=== PATIENT | female | born 1975 | race Caucasian/White ===

== ENCOUNTER 2018-08-15 12:45 | Outpatient (CLI) | payer OTHER ==
[~2018-08-15] VITALS: Ht 168.9 cm; Wt 80.7 kg
[2018-08-15 12:56] VITALS: BP 117/74
[2018-08-15 13:29] LABS: BILIRUBIN,URINE NEGATIVE (NEGATIVE); CLARITY,URINE CLEAR; COLOR,URINE YELLOW; GLUCOSE, URINE (UA) NEGATIVE (NEGATIVE); KETONES,URINE NEGATIVE (NEGATIVE); LEUKOCYTE ESTERASE ,URINE 1+ (NEGATIVE); NITRITE,URINE NEGATIVE (NEGATIVE); PH,URINE 6 (5-9); PROTEIN,URINE NEGATIVE (NEGATIVE); UROBILINOGEN,URINE NORMAL (NORMAL)
[2018-08-15 13:52] LABS: BACTERIA,URINE TRACE /HPF; RBC,URINE 0-2 /HPF
[2018-08-22] MEDS ORDERED: HYDR-34 PO (18:12)
[2018-08-22] MEDS ORDERED: SIME80TA16 PO (18:12)
[2018-08-22] MEDS ORDERED: IBUP-844 PO (18:12)
[2018-08-22] MEDS ORDERED: DOCU100C37 PO (18:12)
== END 2018-08-15 13:15 | disposition home or self-care (01) ==
LOC: PREOP 12:45
PROVIDERS: ATTEND Obstetrics & Gynecology
DX: Z01.818 Encounter for other preprocedural examination (principal); N92.0 Excessive and frequent menstruation with regular cycle; N94.6 Dysmenorrhea, unspecified; D64.9 Anemia, unspecified; Z11.2 Encounter for screening for other bacterial diseases
CPT/HCPCS: 81000; 87081; 87088

== ENCOUNTER 2018-08-21 07:00 | Day surgery (SDC) | payer OTHER ==
[~2018-08-21] VITALS: Ht 168.9 cm; Wt 80.7 kg
[2018-08-21] MEDS ORDERED: LACTATED RINGERS 1,000 ML IV PRN (07:16)
[2018-08-21] MEDS ORDERED: CATHETER FLUSH 10 ML SYR IV PRN (07:30)
[2018-08-21] MEDS ORDERED: metroNIDAZOLE 500MG/100ML IVPB 100 ML IV ONE (07:30)
[2018-08-21] MEDS ORDERED: ceFAZolin INJECTION 1,000 MG in NS (IVPB) 50 ML IV ONE (07:30)
[2018-08-21 07:57] LABS: BASOPHILS % (AUTO) 0 % (0-10); EOSINOPHILS # (AUTO) 0.1 10^3/uL (0.0-0.3); EOSINOPHILS % (AUTO) 1 % (0-10); HEMATOCRIT 41 % (35-52); HEMOGLOBIN 14.1 G/DL (11.5-16.0); LYMPHOCYTES # (AUTO) 1.4 X 10^3 (1.0-4.0); LYMPHOCYTES % (AUTO) 29 % (12-44); MEAN CORPUSCULAR HEMOGLOBIN 31 PG (25-34); MEAN CORPUSCULAR HGB CONC 34 G/DL (32-36); MEAN CORPUSCULAR VOLUME 92 FL (80-99); MEAN PLATELET VOLUME 9.6 FL (7.4-10.4); MONOCYTES # (AUTO) 0.4 X 10^3 (0.0-1.0); MONOCYTES % (AUTO) 8 % (0-12); NEUTROPHILS # (AUTO) 2.9 X 10^3 (1.8-7.8); NEUTROPHILS % (AUTO) 62 % (42-75); PLATELET COUNT 231 10^3/uL (130-400); RED BLOOD COUNT 4.49 10^6/uL (4.35-5.85); RED CELL DISTRIBUTION WIDTH 12.2 % (10.0-14.5); WHITE BLOOD COUNT 4.7 10^3/uL (4.3-11.0)
[2018-08-21] MEDS ORDERED: SEVOFLURANE (ULTANE) 15 ML INHAL SOLN ONE (08:03)
[2018-08-21] MEDS ORDERED: ROCURONIUM 10 MG/ML 5 ML SYRINGE IV ONE (08:03)
[2018-08-21] MEDS ORDERED: LIDOCAINE PF 2% 5 ML (XYLOCAINE) VIAL ONE (08:03)
[2018-08-21] MEDS ORDERED: proPOfol 200 MG/20 ML (DIPRIVAN) VIAL IV ONE (08:03)
[2018-08-21] MEDS ORDERED: ONDANSETRON 4 MG/2 ML (SDV) Z0FRAN ONE (08:04)
[2018-08-21] MEDS ORDERED: MIDAZOLAM 2 MG/2 ML (VERSED) VIAL ONE (08:04)
[2018-08-21] MEDS ORDERED: DEXAMETHASONE 10 MG/ML (DECADRON) 1 ML VIAL ONE (08:04)
[2018-08-21] MEDS ORDERED: fentaNYL INJECTION 100 MCG/2 ML AMP ONE (08:04)
[2018-08-21] MEDS ORDERED: FAMOTIDINE 20MG/2ML IV (PEPCID) IV ONE (08:15)
[2018-08-21] MEDS ORDERED: ONDANSETRON 4 MG/2 ML (SDV) Z0FRAN IV ONE (08:15)
[2018-08-21] MEDS ORDERED: SCOPOLAMINE 1.5 MG (TRANSDERM-SCOP) PATCH TOP ONE (08:15)
[2018-08-21] MEDS ORDERED: BUP/EPI 0.5% 1:200,000 (SENSORCAINE) 30 ML VIAL ONE (08:18)
[2018-08-21] MEDS ORDERED: SCOPOLAMINE 1.5 MG (TRANSDERM-SCOP) PATCH ONE (08:36)
[2018-08-22] MEDS ORDERED: HYDR-34 PO (18:12)
[2018-08-22] MEDS ORDERED: DOCU100C37 PO (18:12)
[2018-08-22] MEDS ORDERED: IBUP-844 PO (18:12)
[2018-08-22] MEDS ORDERED: SIME80TA16 PO (18:12)
== END 2018-08-21 10:40 | disposition home or self-care (01) ==
LOC: SDC 07:00
PROVIDERS: ATTEND Obstetrics & Gynecology
DX: N92.0 Excessive and frequent menstruation with regular cycle (principal); N94.6 Dysmenorrhea, unspecified; R93.89 Abnormal findings on diagnostic imaging of other specified body structures; D64.9 Anemia, unspecified; Z53.8 Procedure and treatment not carried out for other reasons
CPT/HCPCS: 36415; 84703; 85025; 86850; 86900; 86901

== ENCOUNTER 2018-08-22 06:08 | Day surgery (SDC) | payer OTHER ==
[~2018-08-22] VITALS: Ht 168.9 cm; Wt 80.7 kg
[2018-08-22] VITALS (9 sets, daily range): BP systolic 98–115; BP diastolic 69–76
[2018-08-22] MEDS: LACTATED RINGERS 1,000 ML IV PRN ×2 (06:25→08:15)
[2018-08-22] MEDS ORDERED: FAMOTIDINE 20MG/2ML IV (PEPCID) IV ONE (06:45)
[2018-08-22] MEDS ORDERED: SCOPOLAMINE 1.5 MG (TRANSDERM-SCOP) PATCH TOP ONE (06:45)
[2018-08-22] MEDS ORDERED: ONDANSETRON 4 MG/2 ML (SDV) Z0FRAN IV ONE (06:45)
[2018-08-22] MEDS ORDERED: DEXAMETHASONE 10 MG/ML (DECADRON) 1 ML VIAL ONE (06:55)
[2018-08-22] MEDS ORDERED: proPOfol 200 MG/20 ML (DIPRIVAN) VIAL IV ONE (06:55)
[2018-08-22] MEDS ORDERED: ONDANSETRON 4 MG/2 ML (SDV) Z0FRAN ONE ×2 (06:55→06:57)
[2018-08-22] MEDS ORDERED: ROCURONIUM 10 MG/ML 5 ML SYRINGE IV ONE (06:55)
[2018-08-22] MEDS ORDERED: LIDOCAINE PF 2% 5 ML (XYLOCAINE) VIAL ONE (06:55)
[2018-08-22] MEDS ORDERED: fentaNYL INJECTION 100 MCG/2 ML AMP ONE (06:55)
[2018-08-22] MEDS ORDERED: SEVOFLURANE (ULTANE) 15 ML INHAL SOLN ONE ×8 (06:55→08:40)
[2018-08-22] MEDS ORDERED: MIDAZOLAM 2 MG/2 ML (VERSED) VIAL ONE (06:55)
[2018-08-22] MEDS ORDERED: SCOPOLAMINE 1.5 MG (TRANSDERM-SCOP) PATCH ONE (06:57)
[2018-08-22] MEDS ORDERED: ceFAZolin 1,000 MG/10 ML (ANCEF) VIAL ONE (07:00)
[2018-08-22] MEDS ORDERED: NS (IVPB) 50 ML ONE (07:00)
[2018-08-22] MEDS ORDERED: metroNIDAZOLE 500MG/100ML IVPB 100 ML ONE (07:01)
[2018-08-22] MEDS ORDERED: BUP/EPI 0.5% 1:200,000 (SENSORCAINE) 30 ML VIAL ONE (07:08)
--- NOTE | 2018-08-22 07:14 | Progress Note-Pre Operative ---
Pre-Operative Progress Note H&P Reviewed The H&P was reviewed, patient examined and no changes noted. Date Seen by Provider: Aug 22, 2018 Time Seen by Provider: 07:10 Date H&P Reviewed: Aug 22, 2018 Time H&P Reviewed: 07:00 Pre-Operative Diagnosis: menorrhagia, dysmenorrhea, anemia, adenomyosis BRINA PINEDA DO Aug 22, 2018 07:14
[2018-08-22] MEDS ORDERED: ceFAZolin INJECTION 1,000 MG in NS (IVPB) 50 ML IV ONE (08:30)
[2018-08-22] MEDS ORDERED: metroNIDAZOLE 500MG/100ML IVPB 100 ML IV ONE (08:30)
[2018-08-22] MEDS ORDERED: GLYCOPYRROLATE 0.2 MG/ML (ROBINUL) 2 ML VIAL ONE (09:25)
[2018-08-22] MEDS ORDERED: NEOSTIGMINE 1 MG/ML 5 ML SYRINGE ONE (09:25)
[2018-08-22] MEDS: LACTATED RINGERS 1,000 ML IV SCH ×2 (09:40→14:43)
[2018-08-22] MEDS: KETOROLAC 30 MG/ML VIAL IV PRN ×2 (09:40→16:00)
[2018-08-22] MEDS ORDERED: DOCUSATE SODIUM 100 MG (COLACE) CAP PO PRN (09:45)
[2018-08-22] MEDS ORDERED: ONDANSETRON 4 MG/2 ML (SDV) Z0FRAN IV PRN (09:45)
[2018-08-22] MEDS ORDERED: SIMETHICONE 80 MG (MYLICON) CHEW PO PRN (09:45)
[2018-08-22] MEDS ORDERED: ANTACID SUSP 30 ML UDC (MYLANTA) PO PRN (09:45)
[2018-08-22] MEDS ORDERED: CHLORASEPTIC LOZENGE MM PRN (09:45)
[2018-08-22] MEDS ORDERED: HYDROcodone/APAP 7.5 MG/325 MG (LORTAB, LORCET PLUS) TABLET PO PRN (09:45)
--- NOTE | 2018-08-22 09:51 | Operative Report ---
Operative Report Date of Procedure/Surgery Aug 22, 2018 Surgeon (s) BRINA PINEDA DO Aluminum Sheet Cutter (s): Joe Mckeon, MS III Post-Operative Diagnosis same Procedure Performed RaTH- aisha salpingectomy Description of Procedure Anesthesia Type: General Estimated blood loss (mL): 100 Specimen(s) collected/removed uterus, bilateral tubes Findings of the Procedure enlarged, boggy, retroverted uterus. Normal appearing tubes and ovaries. Kayden Masters window in the [place] with endometriosis. adhesions in the right lower quadrant. could not visualize the appendix, likely retrocecal. Allergies and Home Medications Allergies Coded Allergies: codeine (Verified Allergy, Unknown, 08/15/18) Home Medications No Active Prescriptions or Reported Meds Patient Home Medication List Home Medication List Reviewed: Yes BRINA PINEDA DO Aug 22, 2018 09:51
[2018-08-22] MEDS ORDERED: HYDROmorphone 2 MG/ML VIAL (DILAUDID) ONE (09:53)
[2018-08-22] MEDS ORDERED: PROMETHAZINE INJ 25 MG/ML (PHENERGAN) AMP IVP ONE (10:00)
[2018-08-22] MEDS ORDERED: morphine INJ 10 MG/ML 1ML (SYR OR VIAL) IVP ONE (10:00)
[2018-08-22] MEDS ORDERED: ONDANSETRON 4 MG/2 ML (SDV) Z0FRAN IVP PRN (10:00)
[2018-08-22] MEDS ORDERED: HYDROmorphone 2 MG/ML VIAL (DILAUDID) IV ONE (10:00)
[2018-08-22] MEDS ORDERED: MEPERIDINE (DEMEROL) INJ 50 MG/ML ONE (10:33)
[2018-08-22] MEDS ORDERED: MEPERIDINE (DEMEROL) INJ 50 MG/ML IVP ONE (10:45)
[2018-08-22] MEDS ORDERED: FLU QUADRIvalent (5+ YOA) 2018-2019 (AFLURIA) 0.5 ML IM ONE (13:15)
[2018-08-22] MEDS ORDERED: HYDROmorphone 2 MG/ML VIAL (DILAUDID) IV PRN (13:30)
[2018-08-22] MEDS ORDERED: SIME80TA16 PO (18:12)
[2018-08-22] MEDS ORDERED: DOCU100C37 PO (18:12)
[2018-08-22] MEDS ORDERED: IBUP-844 PO (18:12)
[2018-08-22] MEDS ORDERED: HYDR-34 PO (18:12)
--- NOTE | 2018-08-22 18:17 | Discharge Inst-Women's Service ---
Discharge Inst-Women's Serv Depart Medication/Instructions New, Converted or Re-Newed RX: RX on Chart Final Diagnosis menorrhagia dysmenorrhea endometriosis enteropelvic adhesions s/p RaTH, bilateral salpingectomy Consults/Follow Up Additional Follow Up: Yes (1 week with Amaris Gale and 10-12 weeks with Diogo) Activity Activity: Activity as Tolerated Driving Instructions: No Driving for 1 Week NO SMOKING: NO SMOKING Nothing Inside Vagina: No Douching, No [place], No Tampons Diet Discharge Diet: No Restrictions Symptoms to Report to : Bleeding Excessive, Pain Increased, Fever Over 101 Degrees F, Vaginal Bleeding Increase, Cramps in Feet or Legs, Vaginal Discharge Foul For Any Problems or Questions: Contact Your Physician Skin/Wound Care Infection Signs and Symptoms: Increased Redness, Foul Odor of Wound, Increased Drainage, Skin Itchy or Has a Rash, Increased Swelling, Temperature Above 101 F Operative Area Clean and Dry: Keep Incision Clean/Dry, You May Remove Bandage ( Keep bandages in place for 3 days. May remove if soiled or wet.) Stitches/Mo/Dermabond: Dermabond Bathing Instructions: BRINA Rowell DO Aug 22, 2018 18:17
[2018-08-23] MEDS ORDERED: IBUPROFEN 600 MG (MOTRIN) TAB PO PRN (02:30)
== END 2018-08-22 19:15 | disposition home or self-care (01) ==
LOC: SDC 06:08 → WS 11:00 → SDC 19:15
PROVIDERS: ATTEND Obstetrics & Gynecology
DX: N80.3 Endometriosis of pelvic peritoneum (principal); N83.8 Other noninflammatory disorders of ovary, fallopian tube and broad ligament; Z80.49 Family history of malignant neoplasm of other genital organs; G43.909 Migraine, unspecified, not intractable, without status migrainosus; F41.9 Anxiety disorder, unspecified
CPT/HCPCS: 86850; 86900; 86901; 88305; 88307; 94664

== ENCOUNTER 2019-02-06 15:36 | Outpatient (RCR) | payer OTHER ==
[~2019-02-06 15:36] MED LIST: DOCU100C37 PO; HYDR-34 PO; IBUP-844 PO; SIME80TA16 PO
== END 2019-02-13 15:36 | disposition home or self-care (01) ==
PROVIDERS: ATTEND Obstetrics & Gynecology
DX: M53.3 Sacrococcygeal disorders, not elsewhere classified (principal); N39.41 Urge incontinence

== ENCOUNTER 2019-02-22 16:00 | Outpatient (RCR) | payer OTHER | END 2019-03-13 14:36 | disposition home or self-care (01) | PROVIDERS: ATTEND Obstetrics & Gynecology | DX: M53.3 Sacrococcygeal disorders, not elsewhere classified (principal); N39.41 Urge incontinence ==

== ENCOUNTER → 2020-08-31 | Outpatient (CLI) | payer BC, OTHER ==
[~2020-08-31] MED LIST changes: +CATHETER FLUSH 10 ML SYR IV PRN; +HOLD METFORMIN - RECEIVED CONTRAST 20 ML VIAL IV SCH; +IOHEXOL 350 MG/ML 100 ML (OMNIPAQUE 350) VIAL IV ONE; +NS 100 ML (IVPB) BAG IV ONE
--- NOTE | 2020-08-31 16:03 | Diagnostic Imaging Report ---
PROCEDURE: CT abdomen and pelvis with contrast. TECHNIQUE: Multiple contiguous axial images were obtained through the abdomen and pelvis after administration of intravenous contrast. Auto Exposure Controls were utilized during the CT exam to meet ALARA standards for radiation dose reduction. All CT scans use one or more of the following dose optimizing techniques: automated exposure control, MA and/or KvP adjustment based on patient size and exam type or iterative reconstruction. INDICATION: Right lower quadrant pain. COMPARISON: No prior studies are available for comparison. FINDINGS: The lung bases are clear. The liver does show some generalized low density, suggestive of hepatic steatosis. No discrete liver mass is identified. The gallbladder is unremarkable. There is no biliary ductal dilatation. The pancreas and spleen are unremarkable. No adrenal mass is detected. The kidneys are unremarkable. The aorta is non-aneurysmal. The small and large bowel loops are of normal caliber. The appendix is visualized with clarity in the right lower quadrant and appears unremarkable. No free fluid or fluid collection is identified. The bladder is decompressed. No inflammatory changes are seen. The bony structures are nonacute. IMPRESSION: 1. Hepatic steatosis. 2. No acute feature is detected. Dictated by: Dictated on workstation # [id number]
== END ==
LOC: RAD 14:12
PROVIDERS: ATTEND Nurse Practitioner Family
DX: K76.0 Fatty (change of) liver, not elsewhere classified (principal)
CPT/HCPCS: 74177

== ENCOUNTER 2022-04-29 20:52 | Emergency (ER) | payer BC ==
[~2022-04-29] VITALS: Ht 175.2 cm; Wt 66.6 kg
[~2022-04-29 20:52] MED LIST changes: -CATHETER FLUSH 10 ML SYR IV PRN; -HOLD METFORMIN - RECEIVED CONTRAST 20 ML VIAL IV SCH; -IOHEXOL 350 MG/ML 100 ML (OMNIPAQUE 350) VIAL IV ONE; -NS 100 ML (IVPB) BAG IV ONE
[2022-04-29 21:30] LABS: BILIRUBIN,URINE NEGATIVE (NEGATIVE); CLARITY,URINE CLEAR; COLOR,URINE YELLOW; GLUCOSE, URINE (UA) NEGATIVE (NEGATIVE); KETONES,URINE NEGATIVE (NEGATIVE); LEUKOCYTE ESTERASE ,URINE NEGATIVE (NEGATIVE); NITRITE,URINE NEGATIVE (NEGATIVE); PH,URINE 6.5 (5-9); PROTEIN,URINE NEGATIVE (NEGATIVE)
--- NOTE | 2022-04-29 21:37 | ED Abdominal Pain ---
General Chief Complaint: Abdominal/GI Problems Stated Complaint: ABD PAIN Source of Information: Patient Exam Limitations: No Limitations (MARCO MORFIN) History of Present Illness Date Seen by Provider: Apr 29, 2022 Time Seen by Provider: 21:33 Initial Comments Patient is a 46-year-old female with a history of partial hysterectomy who presents ED with left lower quad abdominal pain. Started yesterday evening. Pain has been constant with intermittent sharp pain without radiation. Denies nausea, vomiting, diarrhea, or urinary symptoms such as hematuria or pain with urination. Patient states yesterday she felt bloating. She went to [place] yesterday. She did eat different that she normally does not eat. She did feel bloating afterwards. She has been taken ibuprofen with some improvement. Pain appears to be worse with any movement such as bending over, standing. She denies any chest pain, shortness of breath, cough, flulike symptoms (MARCO MORFIN) Allergies and Home Medications Allergies Coded Allergies: codeine (Verified Allergy, Unknown, 08/15/18) Patient Home Medication List Home Medication List Reviewed: Yes (MARCO MORFIN) Docusate Sodium (Docusate Sodium) 100 Mg Capsule, 100 MG PO BID PRN for CONSTIPATION-1ST LINE Prescribed by: BRINA PINEDA on 08/22/181811 Hydrocodone Bit/Acetaminophen (Lortab 7.5 Mg Tablet) 1 Ea Tablet, 1-2 EA PO Q6H PRN for PAIN-MODERATE TO SEVERE Prescribed by: BRINA PINEDA on 08/22/181811 Ibuprofen (Ibu) 600 Mg Tablet, 600 MG PO Q6H PRN for PAIN-MILD Prescribed by: BRINA PINEDA on 08/22/181811 Simethicone (Simethicone) 80 Mg Tab.chew, 40 MG PO TID PRN for INDIGESTION Prescribed by: BRINA PINEDA on 08/22/181811 Review of Systems Review of Systems Constitutional: No diaphoresis, No malaise, No weakness EENTM: No Double Vision, No Eye Pain Cardiovascular: Denies Chest Pain Gastrointestinal: Abdominal Pain; Denies Diarrhea, Denies Nausea, Denies Vomiting Genitourinary: Denies Burning, Denies Discharge, Denies Flank Pain Musculoskeletal: No back pain, No joint pain Skin: No change in color, No change in hair/nails Endocrine: Denies Excessive Sweating (MARCO MORFIN) All Other Systems Reviewed Negative Unless Noted: Yes (MARCO MORFIN) Past Firomfb-Ojtjuo-Emhhfn Hx Patient Social History Tobacco Use?: No Use of E-Cig and/or Vaping dev: No Substance use?: No Alcohol Use?: Yes Alcohol type: Beer, Wine Alcohol Frequency: Couple times a week Pt feels they are or have been: No (MARCO MORFIN) Immunizations Up To Date Influenza Vaccine Up-to-Date: No; Not Current Second COVID19 Vaccination Catr[place]: 01/04 COVID19 Vaccine Claims Attorney: Richard (MARCO MORFIN) Seasonal Allergies Seasonal Allergies: Yes (AT TIMES) (MARCO MORFIN) Past Medical History Surgeries: Yes (bilat knee scope, anal fissure, ) Respiratory: No Cardiac: No Neurological: Yes Headaches /Migraines Reproductive Disorders: No Genitourinary: No Gastrointestinal: No Musculoskeletal: No Endocrine: No HEENT: No Cancer: No Psychosocial: Yes Anxiety Integumentary: No Blood Disorders: No (MARCO MORFIN) Family Medical History Diabetes mellitus grandparents FH: uterine cancer 19 MOTHER Parkinson's disease grandparents Physical Exam Vital Signs Vital Signs - First Documented 04/29/22 21:17 Temp 36.8 Pulse 102 Resp 18 B/P (MAP) 126/89 (101) Pulse Ox 99 O2 Delivery Room Air (JOÃO,SAGE K DO) Vital Signs Capillary Refill : (MARCO MORFIN) Height/Weight/BMI Height: 5'6.50" Weight: 178lbs. 0.0oz. 80.025050bp; 28.3 BMI Method: General Appearance: WD/WN, no apparent distress HEENT: PERRL/EOMI, normal ENT inspection, TMs normal, pharynx normal Neck: non-tender, full range of motion, supple, normal inspection Respiratory: chest non-tender, lungs clear, normal breath sounds, no respiratory distress, no accessory muscle use Cardiovascular: regular rate, rhythm, no edema, no gallop, no JVD Gastrointestinal: normal bowel sounds, non tender, soft, no organomegaly Extremities: normal range of motion, non-tender, normal inspection, no pedal edema Back: normal inspection, no CVA tenderness Skin: normal color, warm/dry (MARCO MORFIN) Progress/Results/Core Measures Results/Orders Lab Results Laboratory Tests Test 04/29/22 21:29 04/29/22 21:41 Range/Units Urine Color YELLOW Urine Clarity CLEAR Urine pH 6.5 5-9 Urine Specific [place] 1.015 L 1.016-1.022 Urine Protein NEGATIVE NEGATIVE Urine Glucose (UA) NEGATIVE NEGATIVE Urine Ketones NEGATIVE NEGATIVE Urine Nitrite NEGATIVE NEGATIVE Urine Bilirubin NEGATIVE NEGATIVE Urine Urobilinogen 0.2 < = 1.0 MG/DL Urine Leukocyte Esterase NEGATIVE NEGATIVE Urine RBC (Auto) NEGATIVE NEGATIVE Urine RBC NONE /HPF Urine WBC NONE /HPF Urine Squamous Epithelial Cells 0-2 /HPF Urine Crystals NONE /LPF Urine Bacteria FEW H /HPF Urine Casts NONE /LPF Urine Mucus NEGATIVE /LPF Urine Culture Indicated YES White Blood Count 6.8 4.3-11.0 10^3/uL Red Blood Count 4.42 3.80-5.11 10^6/uL Hemoglobin 14.5 11.5-16.0 g/dL Hematocrit 42 35-52 % Mean Corpuscular Volume 95 80-99 fL Mean Corpuscular Hemoglobin 33 25-34 pg Mean Corpuscular Hemoglobin Concent 35 32-36 g/dL Red Cell Distribution Width 11.9 10.0-14.5 % Platelet Count 238 130-400 10^3/uL Mean Platelet Volume 10.2 9.0-12.2 fL Immature Granulocyte % (Auto) 0 % Neutrophils (%) (Auto) 62 42-75 % Lymphocytes (%) (Auto) 29 12-44 % Monocytes (%) (Auto) 6 0-12 % Eosinophils (%) (Auto) 2 0-10 % Basophils (%) (Auto) 0 0-10 % Neutrophils # (Auto) 4.2 1.8-7.8 10^3/uL Lymphocytes # (Auto) 2.0 1.0-4.0 10^3/uL Monocytes # (Auto) 0.4 0.0-1.0 10^3/uL Eosinophils # (Auto) 0.1 0.0-0.3 10^3/uL Basophils # (Auto) 0.0 0.0-0.1 10^3/uL Immature Granulocyte # (Auto) 0.0 0.0-0.1 10^3/uL Sodium Level 139 135-145 MMOL/L Potassium Level 3.9 3.6-5.0 MMOL/L Chloride Level 106 98-107 MMOL/L Carbon Dioxide Level 19 L 21-32 MMOL/L Anion Gap 14 5-14 MMOL/L Blood Urea Nitrogen 11 7-18 MG/DL Creatinine 0.86 0.60-1.30 MG/DL Estimat Glomerular Filtration Rate 84 BUN/Creatinine Ratio 13 Glucose Level 93 70-105 MG/DL Calcium Level 9.2 8.5-10.1 MG/DL Corrected Calcium 9.0 8.5-10.1 MG/DL Total Bilirubin 0.3 0.1-1.0 MG/DL Aspartate Amino Transf (AST/SGOT) 17 5-34 U/L Alanine Aminotransferase (ALT/SGPT) 15 0-55 U/L Alkaline Phosphatase 74 40-136 U/L Total Protein 7.3 6.4-8.2 GM/DL Albumin 4.2 3.2-4.5 GM/DL Lipase 42 8-78 U/L (JOÃOSAGE Mckenna GAO) Vital Signs/I&O 04/29/22 04/29/22 21:17 23:01 Temp 36.8 Pulse 102 91 Resp 18 18 B/P (MAP) 126/89 (101) 115/73 Pulse Ox 99 98 O2 Delivery Room Air Room Air (JOÃOSAGE Andres ) Departure Communication (PCP) Patient with left lower quadrant pain. Started last night. She states she has been passing gas. Denies history of similar type pain. No urinary symptoms. Urinalysis was negative for infection or blood. Lab work was otherwise unremar kable. She had tenderness to the left lower quadrant. History of abdominal adhesions with a history of partial hysterectomy. Due to her current pain and discomfort CT abdomen and pelvis was ordered. CT abdomen pelvis was unremarkable. Did show a follicular cyst in the left ovary 1.2 cm. She was given Toradol with some pain improvement. Pain appears to be worse with movement. She has had similar type pain in the past with gas. She has no diarrhea or vomiting. Discussed anti-inflammatories at home. Possible muscular pain secondary to movement versus gas pain. Discussed no carbonated beverages, Recommend Gas-X, cut back on fatty foods. Eliminate sugar. Recommend drinking plenty of fluids.. May consider probiotics. Outpatient follow-up with PCP in 2 to 3 days for reevaluation. Return precautions were discussed with patient (MARCO MORFIN) Impression Primary Impression: Abdominal pain Disposition: 01 HOME, SELF-CARE Condition: Stable Departure-Patient Inst. Decision time for Depature: 23:00 (MARCO MORFIN) [place]: [facility] [place] Primary Care Physician Patient Instructions: Abdominal Pain, Adult ED ATTENDING PHYSICIAN NOTE: I WAS PHYSICALLY PRESENT ER PHYSICIAN, BUT I WAS NOT INVOLVED IN ANY DECISION MAKING OR ANY CARE OF THIS PATIENT. (SAGE MOYER DO) MARCO MORFIN Apr 29, 2022 21:37 SAGE MOYER DO Apr 30, 2022 22:00
[2022-04-29] MEDS ORDERED: KETOROLAC 30 MG/ML VIAL IVP ONE (21:45)
[2022-04-29 21:59] LABS: BASOPHILS % (AUTO) 0 % (0-10); EOSINOPHILS # (AUTO) 0.1 10^3/uL (0.0-0.3); EOSINOPHILS % (AUTO) 2 % (0-10); HEMATOCRIT 42 % (35-52); HEMOGLOBIN 14.5 g/dL (11.5-16.0); LYMPHOCYTES % (AUTO) 29 % (12-44); MEAN CORPUSCULAR HEMOGLOBIN 33 pg (25-34); MEAN CORPUSCULAR HGB CONC 35 g/dL (32-36); MEAN CORPUSCULAR VOLUME 95 fL (80-99); MEAN PLATELET VOLUME 10.2 fL (9.0-12.2); MONOCYTES # (AUTO) 0.4 10^3/uL (0.0-1.0); MONOCYTES % (AUTO) 6 % (0-12); NEUTROPHILS # (AUTO) 4.2 10^3/uL (1.8-7.8); NEUTROPHILS % (AUTO) 62 % (42-75); PLATELET COUNT 238 10^3/uL (130-400); WHITE BLOOD COUNT 6.8 10^3/uL (4.3-11.0)
[2022-04-29 22:02] LABS: BACTERIA,URINE FEW /HPF
[2022-04-29 22:03] LABS: SQUAMOUS EPITHELIAL CELL,UR 0-2 /HPF
[2022-04-29 22:10] LABS: ALBUMIN 4.2 GM/DL (3.2-4.5); POTASSIUM 3.9 MMOL/L (3.6-5.0)
[2022-04-29 22:11] LABS: CALCIUM 9.2 MG/DL (8.5-10.1)
[2022-04-29 22:12] LABS: TOTAL PROTEIN 7.3 GM/DL (6.4-8.2)
[2022-04-29 22:14] LABS: BILIRUBIN,TOTAL 0.3 MG/DL (0.1-1.0)
[2022-04-29 22:16] LABS: CREATININE SERUM 0.86 MG/DL (0.60-1.30)
--- NOTE | 2022-04-29 22:35 | Diagnostic Imaging Report ---
PROCEDURE: CT abdomen and pelvis with contrast. TECHNIQUE: Multiple contiguous axial images were obtained through the abdomen and pelvis after administration of intravenous contrast. Auto Exposure Controls were utilized during the CT exam to meet ALARA standards for radiation dose reduction. All CT scans use one or more of the following dose optimizing techniques: automated exposure control, MA and/or KvP adjustment based on patient size and exam type or iterative reconstruction. INDICATION: Abdominal pain worsening in severity greater on the left. COMPARISON: CT abdomen and pelvis of 08/31/2020. FINDINGS: There are no radiopaque urinary tract calculi. There is no hydroureteronephrosis. No stones within the lumen of the decompressed gallbladder. There is a cyst in the left hepatic lobe. No biliary dilatation. The liver unremarkable. Spleen, adrenals and pancreas are unremarkable. There is no abnormal fecal loading. There is no small or large bowel obstruction. The air-containing appendix is well visualized and normal. There is no diverticulitis. The uterus absent. There is a left ovarian follicular cyst measuring 1.2 cm. No free fluid. No acute or suspicious fluid collection. The urinary bladder is normal. There is no mesenteric or retroperitoneal adenopathy. The lung bases and the bony structures appear nonacute. The abdominal wall appears intact. IMPRESSION: This is an unremarkable CT abdomen and pelvis with no explanation for the presenting complaint of left-sided pain. Dictated by: Dictated on workstation # [id number]
[2022-04-29] MEDS ORDERED: IOHEXOL 350 MG/ML 100 ML (OMNIPAQUE 350) VIAL IV ONE (22:45)
[2022-04-29] MEDS ORDERED: CATHETER FLUSH 10 ML SYR IV PRN (22:45)
[2022-04-29] MEDS ORDERED: NS 100 ML (IVPB) BAG IV ONE (22:45)
[2022-04-29 23:01] VITALS: BP 115/73
== END 2022-04-29 23:06 | disposition home or self-care (01) ==
LOC: EDUNIT# 20:52 → ER 20:55
DX: R10.32 Left lower quadrant pain (principal); Z90.710 Acquired absence of both cervix and uterus; Z28.310 Unvaccinated for COVID-19
CPT/HCPCS: 36415; 74177; 80053; 81000; 83690; 85025; 87088

== ENCOUNTER → 2022-09-22 | Outpatient (CLI) | payer BC ==
--- NOTE | 2022-09-22 12:43 | Diagnostic Imaging Report ---
CLINICAL INDICATIONS: Patient with diplopia, vertigo, nausea, dizziness and headache for the last 24 hours. COMPARISON: None. Exam: Axial CT scan of the brain without IV contrast with coronal and sagittal reformatted images. Auto Exposure Controls were utilized during the CT exam to meet ALARA standards for radiation dose reduction. Comparison: None Findings: There is no evidence of acute cerebral infarct, intracranial hemorrhage, or gross mass effect. The brain parenchymal volume appears appropriate for patient's age. There is normal daniel-white matter distinction. There is no significant midline shift or herniation. There is no evidence of hydrocephalus. The basal cisterns are unremarkable. The skull, extracranial soft tissue, and orbits are unremarkable. There is mild mucosal thickening involving the ethmoid sinus. Temporal bones show no significant abnormality. Impression: Unremarkable CT scan of the brain. Dictated by: Dictated on workstation # [id number]
[2022-09-22 12:46] LABS: HEMATOCRIT 43 % (35-52); HEMOGLOBIN 14.8 g/dL (11.5-16.0); MEAN CORPUSCULAR HEMOGLOBIN 32 pg (25-34); MEAN CORPUSCULAR HGB CONC 35 g/dL (32-36); MEAN CORPUSCULAR VOLUME 93 fL (80-99); MEAN PLATELET VOLUME 9.8 fL (9.0-12.2); PLATELET COUNT 211 10^3/uL (130-400); WHITE BLOOD COUNT 5.2 10^3/uL (4.3-11.0)
[2022-09-22 13:03] LABS: POTASSIUM 3.6 MMOL/L (3.6-5.0)
[2022-09-22 13:04] LABS: CALCIUM 8.9 MG/DL (8.5-10.1); ERYTHROCYTE SEDIMENTATION RATE 7 MM/HR (0-20)
[2022-09-22 13:05] LABS: TOTAL PROTEIN 7.2 GM/DL (6.4-8.2)
[2022-09-22 13:07] LABS: BILIRUBIN,TOTAL 0.9 MG/DL (0.1-1.0)
[2022-09-22 13:09] LABS: CREATININE SERUM 0.85 MG/DL (0.60-1.30)
== END ==
LOC: RAD 12:24
PROVIDERS: ATTEND Physician Assistant
DX: H53.2 Diplopia (principal); R51.9 Headache, unspecified; R42 Dizziness and giddiness; R11.0 Nausea
CPT/HCPCS: 36415; 70450; 80053; 84443; 85027; 85652; 86141

== ENCOUNTER → 2022-09-29 | Outpatient (CLI) | payer BC | LOC: RAD 08:57 | PROVIDERS: ATTEND Physician Assistant | DX: H53.2 Diplopia (principal); R42 Dizziness and giddiness; R11.0 Nausea; R51.9 Headache, unspecified ==